=== PATIENT | male | born 1950 | race Caucasian/White ===

== ENCOUNTER 2016-09-16 11:07 | Outpatient (CLI) | payer OTHER ==
[2013-04-17 14:04] VITALS: BP 130/80
[2016-09-16 11:35] LABS: BASOPHILS % 0.4 (0.0-1.5); EOSINOPHILS % 0.4 % (0.0-6.8); MEAN CORPUSCULAR HEMOGLOBIN 31.3 pg (28.0-34.0); MEAN CORPUSCULAR VOLUME 96.3 fl (80.0-100.0); MONOCYTES % 4.5 % (0.0-11.0)
[2016-09-16 12:02] LABS: eGFR (African) > 60; eGFR (Non-African) > 60
[2016-09-16 18:51] LABS: IRON SERUM 116 ug/dL (59-158)
== END 2016-09-16 11:08 ==
LOC: LAB 11:07
PROVIDERS: ATTEND Family Medicine
DX: K14.6 Glossodynia (principal); D64.9 Anemia, unspecified; Z11.59 Encounter for screening for other viral diseases; E60 Dietary zinc deficiency
CPT/HCPCS: 36415; 80053; 82728; 82746; 83540; 84439; 84443; 84466; 84481; 84484; 85025; 86803

== ENCOUNTER 2017-06-16 09:53 | Day surgery (SDC) | payer OTHER ==
[2013-04-17 14:04] VITALS: BP 130/80
[~2017-06-16 09:53] MED LIST: LACTATED RINGERS 1,000 ML IV.SOLN IV ONE; PROPOFOL 200 MG/20 ML VIAL IV ONE; SALINE FLUSH 10 ML DISP.SYRIN IVF ONE
--- NOTE | 2017-06-17 11:07 | GI Report ---
REFERRING PHYSICIAN: Dr. José Elizondo BIOINFORMATICS SOFTWARE ENGINEER: Joce Ann MD PROCEDURE MEDICATION: Propofol as per anesthesia. INDICATIONS: Patient is a 66-year-old man who is referred for surveillance. He has had polyps in the past and last looked at [address] Gutierrez in [place]. He has recently had red blood with his stool, particularly if he gets a little more constipated. Also, he has a history of Walsh's esophagus. His family history shows his father had colon cancer and his grandfather had rectal cancer. PROCEDURE PERFORMED: Colonoscopy. PROCEDURE: An Olympus video colonoscope was advanced to the rectum. On retroflexion, he does have some internal hemorrhoids. There is some friability in the anal canal. The colonoscope was slowly advanced all the way to the cecum. The appendiceal orifice and terminal ileum were normal. On slow withdrawal, the cecum, ascending colon, and transverse colon with no obvious intraluminal lesions noted. The descending colon and sigmoid shows some redundancy, no obvious intraluminal lesions were noted. The only bleeding site noted was in the anal canal. FINDINGS: 1. An atonic redundant colon. 2. Internal hemorrhoids. RECOMMENDATIONS: 1. Increase fiber in the diet, such as Metamucil or Benefiber or MiraLAX daily. 2. Again, with his family history and the fact that he has had polyps, consider re-looking at his colon for surveillance again in 5 years. cc: Dr. José STARK
== END 2017-06-16 09:54 ==
LOC: OPSURG 09:53
PROVIDERS: ATTEND Internal Medicine Gastroenterology
DX: K59.8 Other specified functional intestinal disorders (principal); K92.1 Melena; K59.00 Constipation, unspecified; K64.9 Unspecified hemorrhoids; Z86.010 Personal history of colon polyps; Z80.9 Family history of malignant neoplasm, unspecified
CPT/HCPCS: J2704; J7120; 45378; S1016

== ENCOUNTER 2017-07-14 08:21 | Day surgery (SDC) | payer OTHER ==
[2013-04-17 14:04] VITALS: BP 130/80
--- NOTE | 2017-07-14 14:38 | GI Report ---
REFERRING PHYSICIAN: Dr. José Elizondo ICE GUARD TESTER: Joce Ann MD PROCEDURE MEDICATION: Propofol as per anesthesia. 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 He is taking a PPI but he is only taking 10 mg of omeprazole daily. Unfortunately, he continues tobacco usage. His colonoscopy was done just a month or so ago. He denies dysphagia. He also has had neck surgery. PROCEDURE PERFORMED: Endoscopy with biopsies. PROCEDURE: An Olympus video endoscope is passed through the esophagus under direct visualization. The patient does have what appears to be short-segment Walsh' s esophagus and a lax GE junction. Cardia of the stomach shows an open GE junction. Fundus and body of antrum with mild gastritis. Pylorus is open. Duodenal bulb and first and second part of the duodenum exam were normal. We came back to the GE junction and a number of biopsies were taken for pathology for Walsh's. FINDINGS/IMPRESSION: Patient still has what appears to be short-segment Walsh's. Biopsies were taken and are pending. RECOMMENDATIONS: 1. I think he needs to be on a higher dose of a PPI, a minimum of 20 mg half hour before a meal such as breakfast or supper. 2. Again, recommend an antacid at bedtime. 3. Again, recommend strongly discontinuing tobacco usage, which increases one' s risk for cancer in the setting of Walsh's esophagus. 4. He needs to have this re-looked at again within 3 years pending the biopsies. cc: Dr. José STARK
== END 2017-07-14 08:22 ==
LOC: OPSURG 08:21
PROVIDERS: ATTEND Internal Medicine Gastroenterology
DX: K22.70 Barrett's esophagus without dysplasia (principal); K21.0 Gastro-esophageal reflux disease with esophagitis; F17.210 Nicotine dependence, cigarettes, uncomplicated
CPT/HCPCS: 43239; J2001; J2704; J7120; S1016

== ENCOUNTER 2018-06-09 11:18 | Outpatient (CLI) | payer MEDICARE, OTHER ==
[2013-04-17 14:04] VITALS: BP 130/80
== END 2018-06-09 11:20 ==
LOC: LAB 11:18
PROVIDERS: ATTEND Family Medicine
DX: Z12.5 Encounter for screening for malignant neoplasm of prostate (principal)
CPT/HCPCS: 36415; 84153